=== PATIENT | male | born 1995 | race Two or more races ===

== ENCOUNTER → 2024-04-27 | Outpatient (BNVA) | payer MEDICAID, SELFPAY | END | disposition home or self-care (01) | PROVIDERS: PCP Physician Assistant; Referring Provider Physician Assistant; Visit Provider Urology | DX: N47.1 Phimosis (principal); N40.0 Benign prostatic hyperplasia without lower urinary tract symptoms; Z87.891 Personal history of nicotine dependence | CPT/HCPCS: 81003; 99202; G0463 ==

== ENCOUNTER 2025-01-24 06:10 | Day surgery (SDC) | payer MEDICAID, SELFPAY ==
[2025-01-23 11:11] VITALS: BMI 30.8
[2025-01-24] VITALS (8 sets, daily range): BP systolic 113–138; BP diastolic 76–92; PULSE 68–77; RESP 12–20; TEMP 36.2–37.2; O2SAT 95–100; BMI 29.9
[2025-01-24] MEDS: RINGERS LACTATED 1000 ML 1,000 ML 20 ML IV (06:50)
--- NOTE | 2025-01-24 07:10 | CHAP ---
Visited briefly with patient giving comfort and prayer.
--- NOTE | 2025-01-24 10:42 | SUR.PHASEI ---
pt received from OR in recovery bay 5. pt obtunded, breathing unlabored on oxymask 8l, oral airway in place. v/s stable. pt dressing to penis cdi. report received from Ed AMEZCUA and Micah SCHULZ.
--- NOTE | 2025-01-24 10:58 | PD.SUROPNT ---
Surgeon Trina Felton MD Surgical Staff Operation Date: 01/24/25 08:30 Case Staff Anesthesiologist: Reginald Londono
--- NOTE | 2025-01-24 10:58 | PD.SUROPNT ---
Date of Procedure 01/24/25 Pre Op Diagnosis Severe phimosis, redundant prepuce, recurrent balanitis Post Op Diagnosis Same plus dense preputial adhesions Procedure Release of adhesions and circumcision Findings Phimosis, very tight foreskin with preputial adhesions Procedure Description Indication for procedure this 29-year-old gentleman he was seen in urology office. He has recurrent balanitis phimosis. He desired circumcision and release of adhesions procedure and complications were discussed with the patient in great detail informed consent is obtained. Patient was brought to the operating room in a satisfactory condition after appropriate premedication he was appropriately identified by surgeon and operating room staff side scope and indications of the procedure were reconfirmed with the patient he was put on the operating table in a supine position parts were prepped and draped in the usual sterile fashion. General anesthesia was administered uneventfully penile block was given and next he has tight foreskin with the phimosis with a hemostat i stretched the foreskin skin. next foreskin was retracted and there were dense preputial adhesions which were released with sharp and blunt dissection. Next circumferential skin incision was made on the skin aspect of the prepuce parallel to the melgoza of the glans penis. Next the foreskin was retracted and another mucosal incision was made on the mucosal aspect of the prepuce leaving a cuff of about 7 mm. Proper hemostasis were secured. Next the skin to mucosa was approximated with 3-0 chromic sutures in a interrupted fashion. No active bleeding was seen sterile dressings were applied patient after having tolerated the procedure well was moved to recovery room in a satisfactory condition to be discharged home. He is given full postoperative instructions verbally as well as as in writing and also I discussed the instructions with the as well. Follow-up appointment in urology office in 6 weeks is given he is recommended to keep the dressing on for 48 hours. I also explained to patient and his that if there is any question or concerns they can get into touch with my office tomorrow and I will see him earlier than 6 weeks Anesthesia GETA and local Pathology / specimen None Estimated Blood Loss 5 Condition Stable Disposition PACU Surgeon Trina Felton MD Surgical Staff Operation Date: 01/24/25 08:30 Case Staff Anesthesiologist: Reginald Londono
--- NOTE | 2025-01-24 12:02 | SUR.PHASEII ---
pt awake and alert, breathing unlabored on room air. v/s stable. pt dressing to penis cdi. pt able to ambulate to wheelchair with steady gait. d/c instructions given with sister in room using hookman Dahiana PALM, all questions answered. pt d/c via wheelchair with all belongings.
== END 2025-01-24 12:02 | disposition home or self-care (01) ==
PROVIDERS: PCP Physician Assistant; Referring Provider Urology; Visit Provider Urology
PROC: (CPT 54161; principal; 2025-01-24 08:30)
DX: N47.1 Phimosis (principal); N47.8 Other disorders of prepuce; N48.1 Balanitis; N40.0 Benign prostatic hyperplasia without lower urinary tract symptoms
CPT/HCPCS: 54161; A4217; A4649; J0131; J1100; J2250; J2405; J2704; J3010; J3490; J7120; A9270